=== PATIENT | female | born 1985 | race Caucasian/White ===

== ENCOUNTER 2023-09-24 17:16 | Emergency (ER) | payer BC ==
[~2023-09-24] VITALS: Ht 177.8 cm; Wt 90.7 kg
[2023-09-24 17:25] VITALS: BP 139/96; PULSE 86; RESP 16; TEMP 98.3; O2SAT 96
[2023-09-24 17:35] VITALS: BP 142/73; PULSE 86; RESP 16
[2023-09-24 17:40] VITALS: O2SAT 99
[2023-09-24] MEDS: IBUPROFEN 600 MG TAB PO ONE (18:17)
[2023-09-24] MEDS ORDERED: HYDROcodone/APAP 5/325 MG 1 TAB TAB PO ONE (18:55)
== END 2023-09-24 19:03 | disposition home or self-care (01) ==
LOC: MED 17:16
DX: S93.402A Sprain of unspecified ligament of left ankle, initial encounter (principal); Z90.49 Acquired absence of other specified parts of digestive tract; Z90.710 Acquired absence of both cervix and uterus; W01.0XXA Fall on same level from slipping, tripping and stumbling without subsequent striking against object, initial encounter; Y92.89 Other specified places as the place of occurrence of the external cause; Y93.89 Activity, other specified; Y99.8 Other external cause status
CPT/HCPCS: 73610; 99283